=== PATIENT | female | born 1980 | race American Indian/Alaskan Native ===

== ENCOUNTER 2021-09-18 09:01 | Emergency (ER) | payer SELFPAY ==
[2021-09-18 09:47] VITALS: BP 163/64
[2021-09-18] MEDS ORDERED: predniSONE 20 MG TAB PO ONE (13:29)
[2021-09-18] MEDS ORDERED: KETOROLAC 10 MG TAB PO ONE (13:29)
[2021-09-18] MEDS ORDERED: BENZONATATE 100 MG CAP PO ONE (13:29)
[2021-09-18] MEDS ORDERED: ACETAMINOPHEN W/CODEINE 300-30 MG TAB PO ONE (13:30)
[2021-09-18] MEDS ORDERED: AMOXICILLIN/K CLAV 875/125MG TAB PO ONE (13:30)
--- NOTE | 2021-09-18 13:34 | Emergency Department Report ---
- General Chief Complaint: Upper Respiratory Infection Stated Complaint: COUGHING/SORE THROAT/EAR HURTING Time Seen by Provider: 09/18/21 13:19 Source: patient Mode of arrival: Ambulatory Limitations: No Limitations - History of Present Illness Initial Comments: 41-year-old black female with no past medical history presents to the emergency department for evaluation of 6 to 7-day history of cough, congestion, ear pain, runny nose, and chest pain with cough only. She states that she has taken several luus-wku-dgeaulz medications including sinus medication, cough medication, and decongestions without any improvement. She states that the discharge from her nose is now yellowish green in color with a foul odor. She denies fever, nausea, vomiting. MD Complaint: cough, rhinorrhea, nasal congestion, sinus pain -: Gradual, days(s) (67) Severity: severe Severity scale (0 -10): 8 Quality: aching Consistency: constant Associated Symptoms: myalgias, headache, rhinorrhea, nasal congestion, sore throat, cough, chest pain, ear pain. denies: fever, chills, diaphoresis, stiff neck, shortness of breath, abdominal pain, nausea, vomiting, diarrhea, dysuria, rash, hoarseness Treatments Prior to Arrival: Acetaminophen, Ibuprofen, "cold medicine", other (Sinus medication and decongestants.) - Related Data Previous Rx's Medication Instructions Recorded Last Taken Type Amoxicillin/K Clav Tab [Augmentin 1 tab PO Q12HR 7 Days #14 tab 09/18/21 Unknown Rx 875 mg] Benzonatate [Tessalon Perles] 100 mg PO Q8HR #21 cap 09/18/21 Unknown Rx Fluconazole 150 mg PO ONCE #1 tab 09/18/21 Unknown Rx Prednisone [predniSONE 10 mg 10 mg PO .TAPER #1 pack 09/18/21 Unknown Rx (6-Day Pack, 21 Tabs)] guaiFENesin/CODEINE [Robitussin AC] 10 ml PO TID PRN #120 ml 09/18/21 Unknown Rx Allergies Allergy/AdvReac Type Severity Reaction Status Date / Time No Known Allergies Allergy Verified 09/18/21 09:44 ED Review of Systems ROS: Stated complaint: COUGHING/SORE THROAT/EAR HURTING Other details as noted in HPI Comment: All other systems reviewed and negative Constitutional: malaise. denies: chills, fever Eyes: denies: eye discharge ENT: ear pain, throat pain, congestion Respiratory: cough. denies: shortness of breath, SOB with exertion, wheezing Cardiovascular: chest pain (With coughing only). denies: palpitations, dyspnea on exertion, orthopnea, edema, syncope, paroxysmal nocturnal dyspnea Gastrointestinal: denies: abdominal pain, nausea, vomiting, diarrhea, amor temesis, melena, hematochezia Genitourinary: denies: urgency, dysuria, frequency, hematuria, discharge, abnormal menses Musculoskeletal: denies: back pain Skin: denies: rash, lesions Neurological: headache. denies: weakness, numbness, confusion, abnormal gait, vertigo Psychiatric: denies: anxiety, depression Hematological/Lymphatic: denies: easy bleeding, easy bruising ED Past Medical Hx - Medications Home Medications: Home Medications Medication Instructions Recorded Confirmed Last Taken Type Amoxicillin/K Clav Tab [Augmentin 1 tab PO Q12HR 7 Days #14 tab 09/18/21 Unknown Rx 875 mg] Benzonatate [Tessalon Perles] 100 mg PO Q8HR #21 cap 09/18/21 Unknown Rx Fluconazole 150 mg PO ONCE #1 tab 09/18/21 Unknown Rx Prednisone [predniSONE 10 mg 10 mg PO .TAPER #1 pack 09/18/21 Unknown Rx (6-Day Pack, 21 Tabs)] guaiFENesin/CODEINE [Robitussin AC] 10 ml PO TID PRN #120 ml 09/18/21 Unknown Rx ED Physical Exam - General Limitations: No Limitations General appearance: alert, in no apparent distress - Head Head exam: Present: atraumatic, normocephalic - Eye Eye exam: Present: normal appearance. Absent: conjunctival injection - ENT ENT exam: Present: mucous membranes moist, TM's normal bilaterally. Absent: normal exam (Bilateral nasal mucosal edema and bilateral turbinate edema with pain on palpation to bilateral maxillary and frontal sinus areas. Patient noted to have purulent drainage to the nose.), normal orophraynx (Erythema noted to posterior oropharynx) - Expanded ENT Exam Expanded Ear exam: Present: normal external inspection Mouth exam: Present: normal external inspection Throat exam: Positive: tonsillar erythema. Negative: normal inspection, tonsillomegaly, tonsillar exudate - Neck Neck exam: Present: normal inspection, tenderness, lymphadenopathy - Respiratory Respiratory exam: Present: normal lung sounds bilaterally, chest wall tenderness. Absent: respiratory distress, wheezes, rales, rhonchi, stridor - Cardiovascular Cardiovascular Exam: Present: regular rate, normal heart sounds - GI/Abdominal GI/Abdominal exam: Present: soft, normal bowel sounds. Absent: distended, tenderness, guarding, rebound, rigid - Extremities Exam Extremities exam: Present: normal inspection - Back Exam Back exam: Present: normal inspection. Absent: CVA tenderness (R), CVA tenderness (L) - Neurological Exam Neurological exam: Present: alert, oriented X3 - Psychiatric Psychiatric exam: Present: normal affect, normal mood - Skin Skin exam: Present: warm, dry, intact, normal color ED Course Vital Signs 09/18/21 09/18/21 09:44 14:17 Temperature 98.2 F Pulse Rate 78 Respiratory 16 Rate Blood Pressure 163/64 [Left] O2 Sat by Pulse 95 97 Oximetry ED Medical Decision Making - Medical Decision Making 41-year-old black female with no past medical history presents to the emergency department for evaluation of 6 to 7-day history of cough, congestion, ear pain, runny nose, and chest pain with cough only. She states that she has taken several nqwu-vzw-fkoeaed medications including sinus medication, cough medication, and decongestions without any improvement. She states that the discharge from her nose is now yellowish green in color with a foul odor. She denies fever, nausea, vomiting. Exam consistent with sinusitis. Given the fact that patient has tried several xieo-dzi-wejwggr medications for the past 7 days without improvement and now has off colored rhinorrhea with malodor, patient will be treated for acute bacterial rhinosinusitis. She will be given 7-day course of Augmentin along with prednisone Dosepak, Tessalon Perles, and Robitussin to use as directed. Patient will be given one-time dose of Diflucan 150 mg because she states whenever she takes antibiotics she gets a yeast infection. She is advised to take medications as prescribed, increase noncaffeinated fluid intake, follow-up with primary care provider if no improvement or worsening symptoms, or return to the emergency department for any concerning symptoms. She verbalizes understanding of and agreement with plan of care. Critical care attestation.: If time is entered above; I have spent that time in minutes in the direct care of this critically ill patient, excluding procedure time. ED Disposition Clinical Impression: Acute bacterial rhinosinusitis Disposition: HOME / SELF CARE / HOMELESS Is pt being admited?: No Does the pt Need Aspirin: No Condition: Stable Instructions: Antibiotic Medicine, Adult, [id number]-[id number]-Dctd, Sinusitis, Adult, [id number] Additional Instructions: Take medications as prescribed. Follow-up with primary care provider if no improvement or worsening symptoms. Return to the emergency department as needed. Prescriptions: Amoxicillin/K Clav Tab [Augmentin 875 mg] 1 tab PO Q12HR 7 Days #14 tab Fluconazole 150 mg PO ONCE #1 tab Prednisone [predniSONE 10 mg (6-Day Pack, 21 Tabs)] 10 mg PO .TAPER #1 pack guaiFENesin/CODEINE [Robitussin AC] 10 ml PO TID PRN #120 ml PRN Reason: Cough Benzonatate [Tessalon Perles] 100 mg PO Q8HR #21 cap Referrals: KEN GARCIA MD [Staff Physician] - 3-5 Days Forms: Work/School Release Form(ED) Time of Disposition: 13:34
== END 2021-09-18 14:18 | disposition home or self-care (01) ==
LOC: ED 09:01
DX: J01.90 Acute sinusitis, unspecified (principal); B96.89 Other specified bacterial agents as the cause of diseases classified elsewhere
CPT/HCPCS: 99282